=== PATIENT | male | born 1970 | race Caucasian/White ===

== ENCOUNTER 2025-05-14 10:15 | Emergency (ER) | payer SELFPAY ==
[2025-05-14] VITALS (33 sets, daily range): BP systolic 133–147; BP diastolic 89–99; PULSE 61–76; RESP 11–24; TEMP 36.6–37; O2SAT 93–100
--- NOTE | ~2025-05-14 | CT_ITS ---
EXAMINATION: CTA chest PE protocol DATE: 05/14/2025 12:11 INDICATION: Shortness of breath TECHNIQUE: Computed tomography (CT) pulmonary angiogram of the chest was performed with 100 mL Omnipaque-350 intravenous contrast. Additional 3D reconstructions utilizing coronal maximum intensity projection (MIP) were performed. Automated exposure control and iterative reconstruction technique were employed. The dose-length product was 637.23 mGy-cm. COMPARISON: None FINDINGS: No pulmonary embolism. Lungs are clear with no pneumonia, pulmonary edema or other pulmonary infiltrates. No pleural effusion or pneumothorax. Heart size is normal. Stenting along the left internal to descending coronary artery. Thoracic aorta is normal in caliber. No pathologically enlarged thoracic lymphadenopathy. Cholecystectomy clips the gallbladder fossa. Mild thoracic spondylosis. IMPRESSION: 1. No pulmonary embolism or other acute cardiopulmonary disease. Reviewed, dictated and finalized at location A.
--- NOTE | ~2025-05-14 | XR_ITS ---
Examination: XR chest 2V Clinical History: sob Comparison: None Technique: PA and Lateral Findings: Cardiomediastinal silhouette normal size and configuration. Lungs clear. No acute bony abnormality. IMPRESSION: 1. No acute cardiopulmonary findings. Reviewed, dictated and finalized at location R.
--- NOTE | 2025-05-14 10:17 | ECG_ITS ---
Test Date: 2025-05-14 10:19:20 Measurements Intervals [place] Rate: 73 P: 43 WI: 117 QRS: 12 QRSD: 106 T: 34 QT: 408 QTc: 450 Interpretive Statements SINUS RHYTHM WITH SHORT WI INTERVAL LOW QRS VOLTAGE IN PRECORDIAL LEADS [QRS DEFLECTION < 1.0 mV IN CHEST LEADS] INCOMPLETE RIGHT BUNDLE BRANCH BLOCK [90+ ms QRS DURATION, TERMINAL R IN V1/V2, 40+ ms S IN I/aVL/V4/V5/V6] BORDERLINE ECG No previous ECG available for comparison Electronically Signed On 05-15-2025 16:34:50 CDT by Lior Hernandez M.D.
--- NOTE | 2025-05-14 10:23 | ED.SOB ---
HPI - SOB/Dyspnea General Chief Complaint: Shortness of Breath/Dyspnea Stated Complaint: SOB, Chest pain Time Seen by Provider: 05/14/25 10:17 Source: patient Mode of arrival: ambulatory Limitations: no limitations History of Present Illness HPI Narrative: Patient is a 54-year-old male with coronary disease and stent placed a few years ago here with minimal chest pain and significant shortness of breath. This started acutely today. MD elicited complaint: shortness of breath Pertinent past history: other (Coronary artery disease with 1 stent) Onset (ago): day(s) (1) Context: other (Acute onset of shortness of breath a few hours ago and occasional chest pain) Timing: constant Severity: moderate Exacerbating factors: nothing Relieving factors: nothing Known history of: other (Coronary artery disease with 1 stent) Associated symptoms: chest pain Treatment prior to arrival: aspirin (Routine medicine) Related Data Home oxygen amount: none Allergies Allergy/AdvReac Type Severity Reaction Status Date / Time No Known Allergies Allergy Verified 05/14/25 10:21 Review of Systems Review of Systems: All systems reviewed & are unremarkable except as noted in HPI and below Constitutional: Constitutional: Reports no additional constitutional complaints Eyes: Eyes: Reports no additional eye complaints ENT: Reports system reviewed and no additional complaints, except as documented Cardiovascular: Cardiovascular: Reports no additional cardiovascular complaints Respiratory: Respiratory: Reports no additional respiratory complaints Gastrointestinal: Gastrointestinal: Reports no additional gastrointestinal complaints Genitourinary: Genitourinary: Reports no additional male genitourinary complaints Musculoskeletal: Musculoskeletal: Reports no additional musculoskeletal complaints Integumentary/Breasts: Skin/Breast: Reports system reviewed and no additional complaints, except as docu Neurologic: Reports system reviewed and no additional complaints, except as documented Psychiatric: Psychiatric: Reports no additional psychiatric complaints Endocrine: Endocrine: Reports no additional endocrine complaints Hematologic/Lymphatic: Hematologic/Lymphatic: Reports no additional hematologic/lymphatic complaints Allergic/Immunologic: Allergic/Immunologic: Reports no additional allergic/immunologic complaints Exam Const: General: healthy appearing Nutritional Appearance: well nourished Orientation/consciousness: patient oriented x3 Limitations: no limitations HENMT: Head: normal to inspection Ears: external ears normal Face/Nose/Sinus: Normal external nose present Eyes: Conjunctivae: conjunctivae normal Pupils: Equal, round and reactive pupils present EOM: EOMs intact bilaterally Neck: Neck: normal visual inspection Chest: Chest palpation & inspection: normal inspection of the chest Resp: Effort & Inspection: normal respiratory effort and not labored Auscultation: clear to auscultation bilaterally and no crackles Cardio: Rate: regular rate Rhythm: regular rhythm Heart sounds: no murmurs GI: Inspection: non-distended GI Palp: Yes Soft to palpation, No Tenderness to palpation present (GI) and No Guarding due to palpation present (GI) Auscultation: normal bowel sounds : General: Yes bladder normal to palpation Back/Spine/Pelvis: Back: no CVA tenderness Skin: General skin exam: normal color Rashes: no rashes Wounds: no wounds Neuro: General: patient oriented x3, moves all extremities and no meningeal signs Extrem: General: normal to inspection, no clubbing, cyanosis or edema and no pedal edema Psych: Mental Status: mental status grossly normal Affect: normal affect Attitude: cooperative Course Vital Signs Vital signs: Vital Signs Pulse Oximetry 98 05/14/25 10:15 Oxygen Delivery Room Air 05/14/25 10:15 Temperature 37.0 C 05/14/25 10:17 Pulse Rate 65 05/14/25 11:32 Respiratory Rate 20 05/14/25 11:32 Blood Pressure 133/89 05/14/25 11:32 Pulse Oximetry 99 05/14/25 11:39 Oxygen Delivery Room Air 05/14/25 11:39 MDM - SOB/Dyspnea MDM Narrative Medical decision making narrative: Patient is a 54-year-old male with minimal chest pain and some significant shortness of breath over the past few hours. He has CAD with 1 stent. X-ray. Labs. COVID test. Lab Data Attestation: I reviewed the patient's lab results. 05/14/25 10:44 05/14/25 10:44 Labs: Lab Results 05/14/25 05/14/25 05/14/25 Range/Units 10:44 10:45 12:54 WBC 5.4 (4.8-10.8) K/mm3 RBC 5.76 (4.70-6.10) M/mm3 Hgb 17.1 (14.0-18.0) g/dL Hct 49.9 (40.0-54.0) % MCV 86.6 (78.0-102.0) fL MCH 29.7 (27.0-31.0) pg MCHC 34.3 (32-36) g/dL RDW 12.3 (11.6-14.4) % Plt Count 262 (150-420) K/mm3 MPV 11.4 H (8.7-11.0) fl Immature Gran % (Auto) 0.6 H (0.0-0.0) % Neut % (Auto) 48.9 L (50.0-70.0) % Lymph % (Auto) 31.4 (18.0-42.0) % [place] % (Auto) 14.4 H (2.0-11.0) % Eos % (Auto) 3.6 (1.0-6.0) % Baso % (Auto) 1.1 H (0.0-1.0) % Lymph # (Auto) 1.68 (1.10-4.50) K/mm3 [place] # (Auto) 0.77 (0.10-0.90) K/mm3 Eos # (Auto) 0.19 (0.02-0.50) K/mm3 Baso # (Auto) 0.06 (0.00-0.10) K/mm3 Abs Immat Gran (auto) 0.03 H (0.00-0.00) K/mm3 Absolute Neuts (auto) 2.62 (1.70-7.20) K/mm3 Absolute Nucleated RBC 0.00 (0.00-0.00) K/mm3 Nucleated RBC % 0.0 (0-0.0) % PT 10.6 (9.50-12.1) Seconds INR 1.0 APTT 26.7 (23.9-30.70) Sec D-Dimer 0.19 (0.19-0.50) mg/L Sodium 139 (137-145) mmol/L Potassium 4.4 (3.4-5.0) mmol/L Chloride 103 (98-107) mmol/L Carbon Dioxide 27 (22-30) mmol/L Anion Gap 9 (4-12) mmol/L BUN 11 (9-20) mg/dL Creatinine 1.19 (0.7-1.3) mg/dL Estim Creat Clear Calc 70 ml/min Estimated GFR > 60 (59 - ) Glucose 81 (65-110) mg/dL Calculated Osmolality 286 (285-295) mOsm/kg Calcium 9.5 (8.4-10.2) mg/dL Total Bilirubin 0.9 (0.2-1.3) mg/dL AST 34 (17-59) U/L ALT 33 (6-50) U/L Alkaline Phosphatase 56 (38-126) U/L Troponin I < 0.012 < 0.012 (0.000-0.034) ng/mL NT-Pro-B Natriuret Pep 24 (19.9-100) pg/mL Total Protein 9.4 H (6.3-8.2) g/dL Albumin 4.6 (3.5-5.1) g/dL Lipase 119 (23-300) U/L Influenza A (RT-PCR) Negative (Negative) Influenza B (RT-PCR) Negative (Negative) RSV (RT-PCR) Negative (Negative) SARS-CoV-2 RNA (RT-PCR) Negative (Negative) Imaging Data Attestation: I personally reviewed and interpreted this imaging study as follows: Radiologist's impression: Chest x-ray is negative for acute process CTA of the chest was negative for acute process ECG Data EKG #1: Attestation: I personally reviewed and interpreted this ECG as follows: ECG completion date: 05/14/25 ECG completion time: 10:36 EKG Interpretation: normal rate, sinus rhythm, no ectopy, non-specific ST changes, normal QRS, normal QT and NL axis Discharge Plan Discharge Clinical Impression: Dyspnea Qualifiers: Dyspnea type: unspecified Qualified Code(s): R06.00 - Dyspnea, unspecified Patient Disposition: Home Condition: Stable Instructions: Dyspnea (ED), Shortness of Breath (ED) Additional Instructions: Please follow-up with the primary doctor in the next week. You may need to see a manager of organizational development if continued shortness of breath without a cause at this point. Patient Language: Ukrainian Follow-up/Referrals: UNKNOWN,DOCTOR [Primary Care Provider] Time of Disposition: 13:43
[2025-05-14 10:53] LABS: Hematocrit 49.9 % (40.0-54.0); Hemoglobin 17.1 g/dL (14.0-18.0); Immature Granulocyte Percent A 0.6 % (0.0-0.0); Lymphocytes Absolute Auto 1.68 K/mm3 (1.10-4.50); Mean Corpuscular HGB Conc 34.3 g/dL (32-36); Mean Corpuscular Hemoglobin 29.7 pg (27.0-31.0); Mean Corpuscular Volume 86.6 fL (78.0-102.0); Nucleated Red Blood Cells Absolute Auto 0.00 K/mm3 (0.00-0.00); Nucleated Red Blood Cells Perc 0.0 % (0-0.0); Platelet Count Result 262 K/mm3 (150-420); Red Blood Count 5.76 M/mm3 (4.70-6.10); White Blood Count 5.4 K/mm3 (4.8-10.8)
[2025-05-14 11:03] LABS: Alanine Aminotransferase 33 U/L (6-50); Albumin Level 4.6 g/dL (3.5-5.1); Alkaline Phosphatase 56 U/L (38-126); Anion Gap 9 mmol/L (4-12); Aspartate Amino Transferase 34 U/L (17-59); Bilirubin,Total 0.9 mg/dL (0.2-1.3); Blood Urea Nitrogen 11 mg/dL (9-20); Calcium 9.5 mg/dL (8.4-10.2); Carbon Dioxide 27 mmol/L (22-30); Chloride 103 mmol/L (98-107); Estimated CRCL calculation 70 ml/min; Estimated Glomerular Filt Rate > 60; Glucose 81 mg/dL (65-110); Osmolality Calculated 286 mOsm/kg (285-295); Potassium 4.4 mmol/L (3.4-5.0); Sodium 139 mmol/L (137-145); Total Protein 9.4 g/dL (6.3-8.2)
[2025-05-14 11:07] LABS: INR 1.0; Partial Thromboplastin Time 26.7 Sec (23.9-30.70); Prothrombin Time 10.6 Seconds (9.50-12.1)
[2025-05-14 11:10] LABS: Lipase 119 U/L (23-300)
--- OUTSIDE RECORDS SUMMARY | 2025-05-14 11:11 | XMS_ITS | Encounter Summary ---
Author Organization [facility] Address [address] [place] [id number] Care Team Providers Care Fire Lieutenant Marine Name Role Phone Casper Son PA-C Primary Care Provider [phone] Gabriella Guzmán MD Unavailable Unavailabl e Julieth Preciado MD Unavailable Reason for Visit * Reason Onset Date Comments Hospital Follow Up 12/07/2020 Encounter Details Date Type Department Care Team (Late st Contact Info) Description 12/07/2020 Hospital Follow-up Call [facility] [address] [place] [address] Carol Ann Mata, RN Hospital Follow Up Social History Tobacco Use Types Packs/Day Years Used Date Smoking Tobacco: Never Smokeless Tobacco: Current Chew Alcohol Use Standard Drinks/Week Comments No 0 (1 standard drink = 0.6 oz pur e alcohol) Humiliation, Afraid, Rape, and Kick questionnair e Answer Date Recorded Within the last year, have y ou been afraid of your partner or ex-partner? No 12/02/2020 Within the last year, have y ou been humiliated or emotionally abused in other ways by your partner or ex-partner? No Within the last year, have y ou been kicked, hit, slapped, or otherwise physically hurt by your partner or ex-partner? No 12/02/2020 Within the last year, have y ou been raped or forced to have any kind of sexual activity by your partner or ex-partner? No 12/02/2020 Social Connection and Isolat ion Panel [NHANES] Answer Date Recorded In a typical week, how many times do you talk on the phone with family, friends, or neighbors? More than three times a week 12/02/2020 How often do you get togethe r with friends or relatives? More than three times a week 12/02/2020 How often do you attend chur ch or gnosticist services? Never 12/02/2020 Do you belong to any clubs o r organizations such as zoroastrianism groups, unions, fraternal or athletic groups, or school groups? No 12/02/2020 How often do you attend meet ings of the clubs or organizations you belong to? Never 12/02/2020 Are you , , di vorced, , never , or living with a partner? 12/02/2020 AUDIT-C Answer Date Recorded Frequency of Alcohol Consumption Never 05/09/2019 Average Number of Drinks Not on file 019 Frequency of Binge Drinking Not on file 04/21 Overall Financial Resource Strain (CARDIA) Answe r Date Recorded How hard is it for you to pa y for the very basics like food, housing, medical care, and heating? Not hard at all 12/02/2020 [facility] Occupat ional Health - Occupational Stress Questionnaire Answer Date Recorded Do you feel stress - tense, restless, nervous, or anxious, or unable to sleep at night because your mind is troubled all the time - these days? Not at all 12/02/2020 Exercise Vital Sign Answer Date Recorde d On average, how many days pe r week do you engage in moderate to strenuous exercise (like a brisk walk)? 2 days 12/02/2020 On average, how many minutes do you engage in exercise at this level? 20 min 12/02/2020 Hunger Vital Sign Answer Date Recorded Within the past 12 months, y ou worried that your food would run out before you got the money to buy more. Never true 12/03/19 21 Within the past 12 months, t he food you bought just didn't last and you didn't have money to get more. Never true 12/02/2020 PRAPARE - Transportation Answer Date Re corded In the past 12 months, has l ack of transportation kept you from medical appointments or from getting medications? No 11/19 In the past 12 months, has l ack of transportation kept you from meetings, work, or from getting things needed for daily living? No 12/02/2020 Sex and Gender Information Value Date Recorded Sex Assigned at Male 12/02/2020 4:10 AM CDT Legal Sex Male 3:27 AM CDT Gender Identity Male 12/02/2020 4:10 AM CDT Sexual Orientation Straight 12/02/2020 4: 10 AM CDT COVID-19 Exposure Response Date Recorded In the last month, have you been in contact with someone who was confirmed or suspected to have Coronavirus / COVID-19? No / Unsure 12/02/2020 4:05 AM CDT documented as of this encounter Functional Status * RETIRED Are you deaf or do you have serious difficulty hearing Answer Date of Assessment Author Status No 12/02/2020 4:17 AM CDT Activ e * RETIRED Are you blind or do you have serious difficulty seeing, even when wearing glasses? Answer Date of Assessment Author Status No 12/02/2020 4:17 AM CDT Activ e * Do you have serious difficulty walking or climbing stairs? Answer Date of Assessment Author Status No 12/02/2020 4:19 AM CDT Fozia Christian RN Active * Do you have difficulty dressing or bathing? Answer Date of Assessment Author Status No 12/02/2020 4:17 AM CDT Fozia Christian RN Active * Because of a physical, mental, or emotional condition, do you have difficulty doing errands alone such as visiting a doctor's office or shopping? Answer Date of Assessment Author Status No 12/02/2020 4:17 AM CDT Fozia Christian RN Active documented as of this encounter Mental Status * Because of a physical, mental, or emotional condition, do you have serious difficulty concentrating, remembering, or making decisions? Answer Entry Date Author Status No 12/02/2020 4:17 AM CDT Fozia Christian RN Active documented in this encounter Plan of Treatment Not on file documented as of this encounter Visit Diagnoses Not on filedocumented in this encounter Care Teams Fire Lieutenant Marine Relationship Specialty Start Date End Date Casper Son PA-C PCP - General PHYSICIAN GRINDER MILL OPERATOR 04/11/19 Gabriella Guzmán MD Consulting Physician CARDIOVASCULAR DISEASE 12/07/20 Julieth Preciado MD [address] [place] [address] Consulting Physician CARDIOVASCULAR DISEASE 02/25/24 documented as of this encounter
--- OUTSIDE RECORDS SUMMARY | 2025-05-14 11:11 | XMS_ITS | Clinical Summary ---
Author Organization [facility] Address [address] [place] [address] Care Team Providers Care Test Desk Supervisor Name Role Phone Csaper Son PA-C Primary Care Provider [phone] Julieth Preciado MD Unavailable Allergies Active Allergy Reactions Criticality Noted Date Comments Pravastatin Unknown 03/03/2022 Medications lisinopril 10 MG tablet Take 10 mg by mouth daily. Active ASPIRIN 81 OR Take 1 tablet by mouth daily. 3 Active topiramate 50 MG Tab Take 50 mg by mouth daily. Active loratadine (CLARITIN) 10 MG tablet Take 1 tablet by mouth daily. Active butalbital-acetam inophen-caffeine 50-325-40 MG tablet Take 1-2 tablets by mouth every 8 (eight) hours as needed. 6 Active ALPRAZolam 0.5 MG tablet Take 1-2 tablets by mouth 3 (three) times daily as needed. 1 Active pantoprazole 40 MG packet Take 40 mg by mouth daily. Active FLUoxetine 20 MG capsule Take 20 mg by mouth daily. 1 Active meclizine (ANTIVERT) 25 MG tablet 1-2 tablets three times a day as needed for dizziness 20 tablet 3 Active ticagrelor (BRILINTA) 60 MG tabletIndications :Chest pain, unspecified type,Status post insertion of drug-eluting stent into left anterior descending (LAD) artery,On statin therapy,Essential hypertension Take 1 tablet by mouth twice daily 60 tablet 1 4 Active rosuvastatin (CRESTOR) 5 mg 5 mg (10 mg split tab) Take 1 split tab (5 mg total) by mouth nightly at bedtime. 90 tablet 1 4 Active naproxen (NAPROSYN) 500 MG tablet Take 1 tablet (500 mg total) by mouth 2 (two) times daily with meals. 60 tablet 5 Active Active Problems Problem Noted Date Diagnosed Date Hyperlipidemia with target LDL less than 70 12/20 Status post insertion of nasra g-eluting stent into left anterior descending (LAD) artery 03/31/2022 Coronary artery disease invo lving pilot station coronary artery of pilot station heart without angina pectoris 03/31/2022 Polycythemia 01/04/2021 Essential hypertension 01/04/2021 Right bundle branch block 01/04/2021 Orchalgia 05/09/2019 Spermatocele 05/09/2019 Resolved Problems Problem Noted Date Diagnosed Date Resolved Date Chest pain 12/02/2020 04/04/2022 Epididymitis 05/09/2019 04/04/2022 Encounters Date Type Department Care Team Description 03/27/2025 4:27 PM CDT - 03/27/2025 5:38 PM CDT Emergency [facility] [address] [address] Charanjit Mesa MD Knee Pain (/) Discharge Disposition: Home or Self Care (Routine Discharge) 03/27/2025 Travel from Last 3 Months Family History Medical History Relation Comments Heart Disease Father Hypertension Father Heart Disease Mother Hypertension Mother Relation Status Comments Father Mother Alive Social History Tobacco Use Types Packs/Day Years Used Date Smoking Tobacco: Never Smokeless Tobacco: Current Chew Tobacco Cessation:Ready to Q uit: No; Counseling Given: Yes Alcohol Use Standard Drinks/Week Comments No 0 [...] often do you attend chur ch or orthodoxy services? Never 12/02/2020 Do you belong to any clubs o r organizations such as adventism groups, unions, fraternal or athletic groups, or [...] and heating? Not hard at all 12/02/2020 [facility] Occupat ional Health - Occupational Stress [...] Orientation Straight 12/02/2020 4: 10 AM CDT Last Filed Vital Signs Vital Sign Reading Time Taken Comments Blood Pressure 137/88 03/27/2025 5:00 PM CDT Pulse 82 03/27/2025 4:33 PM CDT Temperature 36.5 C (97.7 F) 03/27/2025 4:33 PM CDT Respiratory Rate 18 03/27/2025 4:33 PM CDT Oxygen Saturation 99% 03/27/2025 5:00 PM CDT Inhaled Oxygen Concentration - - Weight 99.8 kg (220 lb) 03/27/2025 4:33 PM CDT Height 182.9 cm (6') 03/27/2025 4:33 PM CDT Body Mass Index 29.84 03/27/2025 4:33 PM CDT Plan of Treatment Health Maintenance Due Date Last Done Comments Colorectal Cancer Screening Colonoscopy (10 Years) 1971 Annual Physical 10/23/1974 Hepatitis C 10/23/1989 Hepatitis B Vaccines (1 of 3 - 19+ 3-dose series) 10/23/1990 Pneumococcal Vaccine: 50+ Years (1 of 2 - PCV) 10/23/1990 Zoster Vaccines (1 of 2) 10/23/2021 ASCVD LDL 01/07/2025 01/08/2024, 02/19, 12/29/2022, Additional history exists COVID-19 Vaccine (3 - 2024- season) 2025 06/02/2021, 05/06/2021 DTaP, Tdap and Td Vaccines (2 - Td or Tdap) 01/10/2031 01/10/2021 Meningococcal B Vaccine Aged Out No l onger eligible based on patient's age to complete this topic Meningococcal Vaccine Aged Out No huong sameer eligible based on patient's age to complete this topic RSV Immunizations Under 20 Months Aged Out No longer eligible based on patient's age to complete this topic Medical Devices Implanted Type Area Classroom Technology Technician Device Identifier Shelf Expiration Date Model / Serial / Lot Cv Orsiro [employer] Elliot Prox Lad Stent- 2 Implanted:Qty: 1 on 03/07/2022 by Augusto Dickson MD Stent Coronary LAD [employer] 09/22/2023 [id number] / / [id number] Procedures Procedure Name Priority Date/Time Associated Diagnosis Comments XR KNEE STAND AP DEEPAK ONLY STAT 03/27/2025 5:14 PM CDT LIPID PANEL Routine 01/08/2024 10:47 AM CDT Chest pain, unspecified type from Last 3 Months or Most Recently Relevant to Health Maintenance Results * XR KNEE STAND AP DEEPAK ONLY (03/27/2025 5:14 PM CDT) Anatomical Region Laterality Modality Knee Radiographic Ilda ging 03/27/2025 5:24 PM CDT Impressions 03/27/2025 5:25 PM CDT IMPRESSION: Unremarkable single view of the knees. Referred By: Interpreted By: Rene Walker MD, 03/27/2025 5:24 PM Narrative 03/27/2025 5:25 PM CDT [place] [id number] [facility] [place] [address] EXAMINATION: XR KNEE STAND AP DEEPAK ONLY HISTORY: Pain DATE: 03/27/2025 4:58 PM COMPARISON: None TECHNIQUE: Single AP standing view of the knees. FINDINGS: No acute fracture identified, within limitation of single projection examination. No dislocation. Medial and lateral joint spaces appear within normal limits. Patellofemoral joint spaces cannot be assessed on this single projection exam. Joint effusion cannot be assessed on this single projection exam. No destructive bone lesion. Procedure Note Rene Walker MD - 03/27/[address] [place] [address] EXAMINATION: XR KNEE STAND AP DEEPAK ONLY HISTORY: Pain DATE: 03/27/2025 4:58 PM COMPARISON: None TECHNIQUE: Single AP standing view of the knees. FINDINGS: No acute fracture identified, within limitation of singleprojection examination. No dislocation. Medial and lateral joint spacesappear within normal limits. Patellofemoral joint spaces cannot beassessed on this single projection exam. Joint effusion cannot beassessed on this single projection exam. No destructive bone lesion. IMPRESSION: Unremarkable single view of the knees. Referred By: Interpreted By: Rene Walker MD, 03/27/2025 5:24 PM Charanjit Mesa MD GENERAL IMAGING Final Result * (ABNORMAL) LIPID PANEL (01/08/2024 10:47 AM CDT) CHOLESTEROL 252 MG/DL 01/08/2024 12:[address] [facility] Comment:HIGH: > OR = 240 TRIGLYCERIDES 290 MG/DL 01/08/2024 12:[address] [facility] Comment:200-499 HIGH HDL 34(L) >39 MG/DL 01/08/2024 12:[address] [facility] LDL (CALCULATED) 160 MG/DL 01/08/20 12:[address] [facility] Comment:160-189 HIGH VLDL CALCULATION 58 MG/DL 01/08/20 12:[address] [facility] Comment:REFERENCE RANGE NOT ESTABLISHED CHOL/HDL RATIO 7.4 01/08/2024 12:[address] [facility] Comment:REFERENCE RANGE NOT ESTABLISHED LDL/HDL 4.7 01/08/2024 12:[address] [facility] Comment:REFERENCE RANGE NOT ESTABLISHED NON HDL CHOLESTEROL 218 MG/DL 01/08/2024 12:[address] [facility] Comment:REFERENCE RANGE NOT ESTABLISHED 01/08/2024 10:4 7 AM CDT Gabriella Guzmán MD LABORATORY Final Resul t [facility] [address] [place] [address], [id number] from Last 3 Months or Most Recently Relevant to Health Maintenance Advance Directives * Full Code (Latest Code Status on File) Date Activated Date Inactivated Comments 03/07/2022 11:49 AM 03/07/2022 4:50 PM * Full Code Date Activated Date Inactivated Comments 12/02/2020 4:37 AM 12/03/2020 4:25 PM Care Teams Test Desk Supervisor Relationship Specialty Start Date End Date Casper Son PA-C PCP - General PHYSICIAN E MERCHANT 04/11/19 Julieth Preciado MD [address] [place] [address] Consulting Physician CARDIOVASCULAR DISEASE 02/25/24
--- OUTSIDE RECORDS SUMMARY | 2025-05-14 11:11 | XMS_ITS | Encounter Summary ---
Author Organization [facility] Address [address] [place] [address] Care Team Providers Care Hr Advisor Name Role Phone Casper Son PA-C Primary Care Provider [phone] Gabriella Guzmán MD Unavailable Unavailabl e Julieth Preciado MD Unavailable Encounter Details Date Type Department Care Team ([facility] st Contact Info) Description 01/02/2023 [facility] [address] [place] [phone] Gabriella Guzmán MD Social History Tobacco Use Types Packs/Day Years [...] often do you attend chur ch or mosque services? Never 12/02/2020 Do you belong to any clubs o r organizations such as buddhist groups, unions, fraternal or athletic groups, or [...] and heating? Not hard at all 12/02/2020 [facility] - [...] Orientation Straight 12/02/2020 4: 10 AM CDT documented as of this encounter Functional Status * RETIRED Are you deaf or do you have serious difficulty hearing Answer Date of Assessment Author Status No 03/11/2022 6:40 PM CDT Activ e * RETIRED Are you blind or do you have serious difficulty seeing, even when wearing glasses? Answer Date of Assessment Author Status No 03/11/2022 6:40 PM CDT Activ e * Do you have serious difficulty walking or climbing stairs? Answer Date of Assessment Author Status No 03/11/2022 6:40 PM CDT Loyda Luna R N Active * Do you have difficulty dressing or bathing? Answer Date of Assessment Author Status No 03/11/2022 6:40 PM CDT Loyda Luna R N Active * Because of a physical, mental, or emotional condition, do you have difficulty doing errands alone such as visiting a doctor's office or shopping? Answer Date of Assessment Author Status No 03/11/2022 6:40 PM CDT Loyda Luna R N Active documented as of this encounter Mental Status * Because of a physical, mental, or emotional condition, do you have serious difficulty concentrating, remembering, or making decisions? Answer Entry Date Author Status No 03/11/2022 6:40 PM CDT Loyda Luna R N Active documented in this encounter Plan of Treatment Not on file documented as of this encounter Procedures Procedure Name Priority Date/Time Associated Diagnosis Comments LIPID PANEL Routine 12/29/2022 HEPATIC FUNCTION PANEL Routine 12/29/2022 documented in this encounter Results * LIPID PANEL (12/29/2022) CHOLESTEROL 117 140 - 200 HDL 39 35 - 100 TRIGLYCERIDES 154 0 - 150 LDL (CALCULATED) 47 0 - 100 12/29/2022 Gabriella Guzmán MD LABORATORY Final Resul t * HEPATIC FUNCTION PANEL (12/29/2022) ALBUMIN S/P/B 3.8 3.5 - 5.0 ALKALINE PHOSPHATASE S/P/B 68 46 - 116 ALT 37 12 - 78 AST 25 10 - 41 BILIRUBIN DIRECT S/P/B 0.2 0.0 - 0.4 BILIRUBIN TOTAL S/P/B 0.6 0.2 - 12 TOTAL PROTEIN S/P/B 7.46. 6.0 - 8.5 12/29/2022 Gabriella Guzmán MD LABORATORY Final Resul t documented in this encounter Visit Diagnoses Not on filedocumented in this encounter Care Teams Hr Advisor Relationship Specialty Start Date End Date Casper Son PA-C PCP - General PHYSICIAN TOBACCO SORTER 04/11/19 Gabriella Guzmán MD Consulting Physician CARDIOVASCULAR DISEASE 12/07/20 Julieth Preciado MD [address] [place] [address] Consulting Physician CARDIOVASCULAR DISEASE 02/25/24 documented as of this encounter
--- OUTSIDE RECORDS SUMMARY | 2025-05-14 11:11 | XMS_ITS | Patient Health Record ---
Author Organization [facility] Address [address] [address] Care Team Providers Care Mining Helper Name Role Phone piper aranda Primary Care Provider Jena Philiparathi Unavailable [phone] Reason For Referral No Information Medications Medication SIG (Take, Route, Frequency, Duration) Notes Start Date End Date Status FLUoxetine HCl 20 MG 1 cap(s) orally onc e a day Active Aspirin Adult Low Dose 81 MG 1 tab(s) orally once a day Active Lisinopril 10 MG 1 tab(s) orally once a day Active Fenofibrate 160 MG 1 tab(s) orally once a day Active Problems Problem Type SNOMED Code ICD Code Onset Dates Problem Status W/U Status Risk Notes Problem Thyroid function tests abnormal (108666228) Abnormal thyroid blood test (R94.6) Active confirmed Plan Of Treatment No Information Medical (General) History Medical History History ICD Code HTN HYperlipidemia Polycythemia Overactive Nerves Surgical History Surgery Date(Month/Year) Vasectomy Hospitalization History Reason Date(Month/Year)
--- OUTSIDE RECORDS SUMMARY | 2025-05-14 11:11 | XMS_ITS | Clinical Summary ---
Author Organization [facility] Address [address] [place] [address] Phone Care Team Providers Care Battery Vent Plug Inserter Name Role Phone Casper Son Primary Care Provider [phone] Too Caceres MD Unavailable Allergies Active Allergy Reactions Criticality Noted Date Comments Pravastatin Unknown 03/03/2022 Medications aspirin 81 MG Chewable Tablet Acti ve fenofibrate (TRIGLIDE, LOFIBRA) 160 MG Tablet Take 160 mg by mouth daily. Active FLUoxetine (PROzac) 20 MG Capsule Take 20 mg by mouth daily. Active lamoTRIgine (LaMICtal) 25 MG Tablet Take 25 mg by mouth daily. 1-2 tabs p.o. Daily. Active Topiramate 50 MG Tablet Take 50 mg by mouth every evening. Active other Please do a therapeutic phlebotomy of 1 unit. Dx: Polycythemia vera After the phlebotomy please give 250 cc NS IV. 1 Act 1 Active ALPRAZolam (XANAX) 0.5 MG Tablet Take 1 to 2 tabs PO 3 times a day as needed for anxiety 60 Tablet 3 1 Active amLODIPine (NORVASC) 5 MG Tablet Take 5 mg by mouth daily. 2 Active hydrOXYzine (ATARAX) 25 MG Tablet 2 Active pantoprazole (PROTONIX) 40 MG Tablet Delayed Response Take 40 mg by mouth daily. 10/30/202 2 Active famotidine (PEPCID) 20 MG Tablet Take 1 tablet by mouth twice daily 60 Tablet 3 2 Active rosuvastatin (CRESTOR) 20 MG Tablet TAKE 1 TABLET BY MOUTH NIGHTLY AT BEDTIME 3 Active ondansetron (ZOFRAN-ODT) 8 MG TABLET DISPERSIBLE 2 Active Brilinta 60 MG Tablet Take 60 mg by mouth 2 times daily. 3 Active meclizine (ANTIVERT) 25 MG Tablet TAKE 1/2 TO 1 (ONE-HALF TO ONE) TABLET BY MOUTH THREE TIMES DAILY NEEDED 3 Active lisinopril (PRINIVIL, ZESTRIL) 20 MG Tablet 3 Active isosorbide dinitrate (ISORDIL) 10 MG Tablet Take 10 mg by mouth 2 times daily. 3 Active ketorolac (TORADOL) 10 MG Tablet TAKE 1 TABLET BY MOUTH EVERY 8 HOURS NEEDED 3 Active butalbital-acet aminophen-caffe ine (FIORICET, ESGIC) 50-325-40 MG Tablet TAKE 1 TO 2 TABLETS BY MOUTH TWICE DAILY NEEDED MUST LAST 30 DAYS 3 Active doxycycline hyclate (VIBRA-TABS) 100 MG Tablet 3 Active Active Problems Problem Noted Date Diagnosed Date Palpitations 06/11/2020 Non-recurrent bilateral ingu inal hernia without obstruction or gangrene 12/06/2018 Dehydration 06/07/2018 Frequent headaches 06/07/2018 Polycythemia vera 06/07/2018 Polycythemia vera(238.4) 12/08/2016 Vitamin D deficiency 12/03/2015 Erythrocytosis Immunizations Immunization Administration Dates Next Due TDAP Vaccine 01/10/2021 Family History Medical History Relation Name Comments Hypertension Brother 2 High Cholesterol Brother 3 Hypertension Father High Cholesterol Mother Hypertension Mother Relation Name Status Comments Brother 1 Alive Brother 2 Brother 3 Father Mother Alive Social History Tobacco Use Types Packs/Day Years Used Date Smoking Tobacco: Never Smokeless Tobacco: Current Chew Tobacco Cessation:Ready to Q uit: Not Asked; Counseling Given: Not Answered Alcohol Use Standard Drinks/Week Comments No 0 (1 standard drink = 0.6 oz pur e alcohol) PHQ-2 Answer Date Recorded Total Score - Questions 1-9 0 03/21 Sex and Gender Information Value Date Recorded Sex Assigned at Not on file Legal Sex Male 1:16 PM CDT Gender Identity Not on file Sexual Orientation Not on file Last Filed Vital Signs Vital Sign Reading Time Taken Comments Blood Pressure 120/82 10/12/2023 11:11 AM FIBERGLASS CONTAINER WINDING OPERATOR Pulse 71 10/12/2023 11:11 AM FIBERGLASS CONTAINER WINDING OPERATOR Temperature 36.7 C (98.1 F) 10/12/2023 11:11 AM FIBERGLASS CONTAINER WINDING OPERATOR Respiratory Rate 16 10/12/2023 11:11 AM FIBERGLASS CONTAINER WINDING OPERATOR Oxygen Saturation 97% 10/12/2023 11:11 AM FIBERGLASS CONTAINER WINDING OPERATOR Inhaled Oxygen Concentration - - Weight 91 kg (200 lb 11.2 oz) 10/12/2023 11:11 A M FIBERGLASS CONTAINER WINDING OPERATOR Height 182.9 cm (6') 10/12/2023 11:11 AM FIBERGLASS CONTAINER WINDING OPERATOR Body Mass Index 27.22 10/12/2023 11:11 AM FIBERGLASS CONTAINER WINDING OPERATOR Plan of Treatment Health Maintenance Due Date Last Done Comments Hepatitis C Virus (HCV) Screening 1970 Hepatitis B Immunization (1 of 3 - 19+ 3-dose series) 10/23/1990 Pneumococcal Immunization (5 0+ years) (1 of 2 - PCV) 10/23/1990 Zoster Immunization (1 of 2) 10/23/1990 Cologuard 10/23/2016 Colonoscopy 10/23/2016 Colorectal Cancer Screening 10/23/2016 Immunochemical Fecal Occult Blood 10/23/2016 SARS-COV-2 Immunization (3 - Moderna risk series) 06/30/2021 06/02/2021, 05/06/2021 Influenza Immunization (#1) 2025 Td Immunization Every 10 Yea rs (Adults With 1 Tdap) 01/10/2031 01/10/2021 Respiratory Syncytial Virus (RSV) Immunization (Adult) (1 - 1-dose 75+ series) 10/23/2046 DTaP/Tdap/Td Immunization Discontinued 01/10/2021 Human Papillomavirus (HPV) Immunization Aged Out No longer eligible based on patient's age to complete this topic Meningococcal Immunization (ACWY) Aged Out No longer eligible based on patient's age to complete this topic Rotavirus Immunization Aged Out No lo nger eligible based on patient's age to complete this topic Care Teams Battery Vent Plug Inserter Relationship Specialty Start Date End Date Casper Son PA [address] [place] [address] PCP - General Physician Milk Route Supervisor 12/14/20 Too Caceres MD [address] [place] [address] [address] [place] [address] Consulting Physician Oncology 05/24/23
[2025-05-14 11:12] LABS: NT Pro B Type Natriuretic Pept 24 pg/mL (19.9-100)
[2025-05-14 11:23] LABS: Troponin I < 0.012 ng/mL (0.000-0.034)
[2025-05-14 11:25] LABS: Influenza A QL RT-PCR Negative (Negative); Influenza B QL RT-PCR Negative (Negative); RSV RNA, RT-PCR Negative (Negative); SARS-CoV-2 RNA PCR Negative (Negative)
--- OUTSIDE RECORDS SUMMARY | 2025-05-14 11:39 | XMS_ITS | Encounter Summary ---
Author Organization [facility] Address [address] [place] [address] Care Team Providers Care Precision Instrument And Tool Maker Name Role Phone Casper Son PA-C Primary Care Provider [phone] Gabriella Guzmán MD Unavailable Unavailabl e Julieth Preciado MD Unavailable Encounter Details Date Type Department Care Team ([facility] st Contact Info) Description 01/02/2023 Abstract [facility] [address] [place] [phone] Gabriella Guzmán MD Social History Tobacco Use [...] often do you attend chur ch or yarsani services? Never 12/02/2020 Do you belong to any clubs o r organizations such as christian groups, unions, fraternal or athletic groups, or [...] and heating? Not hard at all 12/02/2020 [facility] Occupat ional Health - Occupational Stress [...] on filedocumented in this encounter Care Teams Precision Instrument And Tool Maker Relationship Specialty Start Date End Date Casper Son PA-C PCP - General PHYSICIAN NUMERICAL CONTROL ROUTER OPERATOR 04/11/19 Gabriella Guzmán MD Consulting Physician CARDIOVASCULAR DISEASE 12/07/20 Julieth Preciado MD [address] [place] [address] Consulting Physician CARDIOVASCULAR DISEASE 02/25/24 documented as of this encounter
--- OUTSIDE RECORDS SUMMARY | 2025-05-14 11:39 | XMS_ITS | Clinical Summary ---
Author Organization [facility] Address [address] [place] [address] Phone Care Team Providers Care Naphthol Soaping Machine Operator Name Role Phone Casper Son Primary Care Provider [phone] Too Caceres MD Unavailable Allergies Active Allergy [...] Comments Blood Pressure 120/82 10/12/2023 11:11 AM AUTOMOTIVE WARRANTY ADMINISTRATOR Pulse 71 10/12/2023 11:11 AM AUTOMOTIVE WARRANTY ADMINISTRATOR Temperature 36.7 C (98.1 F) 10/12/2023 11:11 AM AUTOMOTIVE WARRANTY ADMINISTRATOR Respiratory Rate 16 10/12/2023 11:11 AM AUTOMOTIVE WARRANTY ADMINISTRATOR Oxygen Saturation 97% 10/12/2023 11:11 AM AUTOMOTIVE WARRANTY ADMINISTRATOR Inhaled Oxygen Concentration - - Weight 91 kg (200 lb 11.2 oz) 10/12/2023 11:11 A M AUTOMOTIVE WARRANTY ADMINISTRATOR Height 182.9 cm (6') 10/12/2023 11:11 AM AUTOMOTIVE WARRANTY ADMINISTRATOR Body Mass Index 27.22 10/12/2023 11:11 AM AUTOMOTIVE WARRANTY ADMINISTRATOR Plan of Treatment Health Maintenance Due Date [...] age to complete this topic Care Teams Naphthol Soaping Machine Operator Relationship Specialty Start Date End Date Casper Son PA [address] [address] PCP - General Physician Skin Care Therapist 12/14/20 Too Caceres MD [address] [place] [address] [address] [place] [id number] Consulting Physician Oncology 05/24/23
--- OUTSIDE RECORDS SUMMARY | 2025-05-14 11:39 | XMS_ITS | Clinical Summary ---
Author Organization [facility] Address [address] [place] [address] Care Team Providers Care Strategic Planning Manager Name Role Phone Casper Son PA-C Primary Care Provider [phone] Julieth Preciado MD Unavailable Allergies Active Allergy [...] artery 03/31/2022 Coronary artery disease invo lving [place] coronary artery of [place] heart without angina pectoris 03/31/2022 Polycythemia 01/04/2021 Essential hypertension 01/04/2021 Right bundle branch block 01/04/2021 Orchalgia 05/09/2019 Spermatocele 05/09/2019 Resolved Problems Problem Noted Date Diagnosed Date Resolved Date Chest pain 12/02/2020 04/04/2022 Epididymitis 05/09/2019 04/04/2022 Encounters Date Type Department Care Team Description 03/27/2025 4:27 PM CDT - 03/27/2025 5:38 PM CDT Emergency [facility] [address] [facility] [address] [place] [address] Charanjit Mesa MD Knee Pain (/) Discharge [...] often do you attend chur ch or roman catholic services? Never 12/02/2020 Do you belong to any clubs o r organizations such as baptist groups, unions, fraternal or athletic groups, or [...] and heating? Not hard at all 12/02/2020 [facility] Occupat ional Health - Occupational Stress [...] this topic Medical Devices Implanted Type Area Beverage Specialist Device Identifier Shelf Expiration Date Model / Serial / Lot Cv Orsiro Houstonia Elliot Prox Lad Stent- 2 Implanted:Qty: 1 on 03/07/2022 by Augusto Dickson MD Stent Coronary LAD [employer] 09/22/2023 [id number] / / [id number] Procedures Procedure Name Priority Date/Time Associated Diagnosis [...] 5:24 PM Narrative 03/27/2025 5:25 PM CDT [place] [id number] [facility] [place] [address] EXAMINATION: XR KNEE STAND AP DEEPAK ONLY [...] Procedure Note Rene Walker MD - 03/27/[address] [place] [address] EXAMINATION: XR KNEE STAND AP DEEPAK ONLY [...] CHOLESTEROL 252 MG/DL 01/08/2024 12:28 PM CDT [facility] Comment:HIGH: > OR = 240 TRIGLYCERIDES 290 MG/DL 01/08/2024 12:28 PM CDT [facility] Comment:200-499 HIGH HDL 34(L) >39 MG/DL 01/08/2024 12:28 PM CDT [facility] LDL (CALCULATED) 160 MG/DL 01/08/20 12:28 PM CDT [facility] Comment:160-189 HIGH VLDL CALCULATION 58 MG/DL 01/08/20 12:28 PM CDT [facility] Comment:REFERENCE RANGE NOT ESTABLISHED CHOL/HDL RATIO 7.4 01/08/2024 12:28 PM CDT [facility] Comment:REFERENCE RANGE NOT ESTABLISHED LDL/HDL 4.7 01/08/2024 12:28 PM CDT [facility] Comment:REFERENCE RANGE NOT ESTABLISHED NON HDL CHOLESTEROL 218 MG/DL 01/08/2024 12:28 PM CDT [facility] Comment:REFERENCE RANGE NOT ESTABLISHED 01/08/2024 10:4 7 AM CDT Gabriella Guzmán MD LABORATORY Final Resul t [facility] [address] [place] [address], [phone] from Last 3 Months or Most Recently Relevant to Health Maintenance Advance Directives * Full Code (Latest Code Status on File) Date Activated Date Inactivated Comments 03/07/2022 11:49 AM 03/07/2022 4:50 PM * Full Code Date Activated Date Inactivated Comments 12/02/2020 4:37 AM 12/03/2020 4:25 PM Care Teams Strategic Planning Manager Relationship Specialty Start Date End Date Casper Son PA-C PCP - General PHYSICIAN FINISHING RANGE OPERATOR 04/11/19 Julieth Preciado MD [address] [place] [address] Consulting Physician CARDIOVASCULAR DISEASE 02/25/24
--- OUTSIDE RECORDS SUMMARY | 2025-05-14 11:39 | XMS_ITS | Encounter Summary ---
Author Organization [facility] Address [address] [place] [address] Care Team Providers Care Perfect Bind Machine Operator Name Role Phone Casper Son PA-C Primary Care Provider [phone] Gabriella Guzmán MD Unavailable Unavailabl e Julieth Preciado MD Unavailable Reason for Visit * Reason Onset Date Comments Hospital Follow Up 12/07/2020 Encounter Details Date Type Department Care Team (Late st Contact Info) Description 12/07/2020 Hospital Follow-up Call [facility] [address] [place] [address] Carol Ann Mata, RN Hospital Follow Up [...] often do you attend chur ch or uatsdin services? Never 12/02/2020 Do you belong to any clubs o r organizations such as congregation groups, unions, fraternal or athletic groups, or [...] and heating? Not hard at all 12/02/2020 [facility] of Occupat ional Health - Occupational Stress [...] on filedocumented in this encounter Care Teams Perfect Bind Machine Operator Relationship Specialty Start Date End Date Casper Son PA-C PCP - General PHYSICIAN GAS MAKER 04/11/19 Gabriella Guzmán MD Consulting Physician CARDIOVASCULAR DISEASE 12/07/20 Julieth Preciado MD [address] [place] [address] Consulting Physician CARDIOVASCULAR DISEASE 02/25/24 documented as of this encounter
[2025-05-14 13:25] LABS: Troponin I < 0.012 ng/mL (0.000-0.034)
== END 2025-05-14 13:55 | disposition home or self-care (01) ==
PROVIDERS: Emergency Provider Emergency Medicine
DX: R06.00 Dyspnea, unspecified (principal); I25.10 Atherosclerotic heart disease of native coronary artery without angina pectoris; Z20.822 Contact with and (suspected) exposure to COVID-19
CPT/HCPCS: 36415; 71046; 71275; 80053; 83690; 83880; 84484; 85025; 85380; 85610; 85730; 87637; 93005; 99284; Q9967

== ENCOUNTER 2025-08-11 14:32 | Emergency (ER) | payer SELFPAY ==
[2025-08-11 14:34] VITALS: BP 175/109; PULSE 93; RESP 18; O2SAT 97
--- NOTE | 2025-08-11 14:37 | ED.EYEPROB ---
HPI - Eye Problem General Chief complaint: Eye Problems Stated complaint: L. eye redness/itching Time Seen by Provider: 08/11/25 14:32 Source: patient Mode of arrival: ambulatory Limitations: no limitations History of Present Illness HPI Narrative: Patient presents 54-year-old with some eye irritation and redness with itching no foreign body sensation no injury to the left eye no drainage currently no fever chills no shortness breath no nausea vomiting. Patient has a history of hypertension has been out of his medication. chief complaint: eye redness Onset (ago): day(s) Onset description: gradual Duration: constant Location: left eye Severity: mild Related Data Allergies Allergy/AdvReac Type Severity Reaction Status Date / Time No Known Allergies Allergy Verified 08/11/25 14:33 Review of Systems Review of Systems: All systems reviewed & are unremarkable except as noted in HPI and below PMFSH Past Medical History Medical History Hypertension Exam Const: General: healthy appearing and no acute distress Nutritional Appearance: well nourished Orientation/consciousness: patient oriented x3 HENMT: Head: normal to inspection Eyes: Conjunctivae: conjunctival abnormality Neck: Neck: normal visual inspection Chest: Chest palpation & inspection: normal inspection of the chest Resp: Effort & Inspection: normal respiratory effort Auscultation: clear to auscultation bilaterally Cardio: Rate: regular rate Rhythm: regular rhythm GI: Auscultation: normal bowel sounds Course Course Emergency Course: Medical decision making narrative: The patient was evaluated by myself in the emergency department. History obtained from the patient who is an independent historian physical exam performed and witnessed by the nurse. Patient with some left conjunctival injection redness administered a dose of antibiotic eyedrop. Patient has history of hypertension and has been out of his medication and will prescribe lisinopril and sent to his pharmacy. Repeat assessment: Patient doing well on repeat exam with no acute distress Symptoms have been stable since arrival to the emergency department Repeat vitals are stable Patient agrees with discussion after shared medical decision-making and agrees with discharge All questions answered to the patient's satisfaction Advised patient to follow-up with primary in the next 3 to 5 days. MDM Differential Diagnosis Differential Diagnosis: Conjunctivitis/hypertension Critical Care Time Critical Care Time Critical Care Time: No Discharge Plan Discharge Clinical Impression: Bacterial conjunctivitis Patient Disposition: Home Condition: Stable Instructions: Antibiotic Form, Chronic Hypertension (ED), Conjunctivitis (ED) Additional Instructions: Advised patient to take medication as prescribed and to follow with primary care physician within the next 3 to 5 days further evaluation and treatment. Patient Language: Occitan Prescriptions: New neomycin-polymyxin B-dexameth [Maxitrol] 3.5mg/mL-10,000 unit/mL-0.1 % drops,suspension 1 drp LEFT EYE Q4H 7 Days Qty: 5 0RF lisinopril 20 mg tablet 20 mg PO DAILY Qty: 30 0RF Follow-up/Referrals: UNKNOWN,DOCTOR [Primary Care Provider] Time of Disposition: 14:42
[2025-08-11 14:40] VITALS: TEMP 37.1
[2025-08-11] MEDS: NEOMYCIN/POLYMYXIN/DEXAMETH OP OINT 3.5 GM TUBE 1 APPLIC EACH EYE (15:02)
--- OUTSIDE RECORDS SUMMARY | 2025-08-11 16:22 | XMS_ITS | Encounter Summary ---
Author Organization [facility] Address [address] [place] [address] Care Team Providers Care Geriatric Social Worker Name Role Phone Casper Son PA-C Primary Care Provider [phone] Gabriella Guzmán MD Unavailable Unavailabl e Julieth Preciado MD Unavailable Encounter Details Date Type Department Care Team ([facility] st Contact Info) Description 01/02/2023 [facility] [address] [place] [phone] Gabriella Guzmán MD Social History Tobacco Use [...] or ex-partner? No 12/02/2020 Social Connection and Isolation Panel Answer Date Recorded In a typical week, [...] any clubs o r organizations such as yarsanism groups, unions, fraternal or athletic groups, or [...] and heating? Not hard at all 12/02/2020 [facility] - Occupational Stress Questionnaire Answer Date Recorded [...] on filedocumented in this encounter Care Teams Geriatric Social Worker Relationship Specialty Start Date End Date Casper Son PA-C PCP - General PHYSICIAN CLOTH SHADER 04/11/19 Gabriella Guzmán MD Consulting Physician CARDIOVASCULAR DISEASE 12/07/20 Julieth Preciado MD [address] [place] [address] Consulting Physician CARDIOVASCULAR DISEASE 02/25/24 documented as of this encounter
--- OUTSIDE RECORDS SUMMARY | 2025-08-11 16:22 | XMS_ITS | Clinical Summary ---
Author Organization [facility] Address [address] [place] [address] Care Team Providers Care Yard Associate Name Role Phone Casper Son PA-C Primary Care Provider [phone] Julieth Preciado MD Unavailable Allergies Active Allergy [...] artery 03/31/2022 Coronary artery disease invo lving eek coronary artery of eek heart without angina pectoris 03/31/2022 Polycythemia 01/04/2021 Essential hypertension 01/04/2021 Right bundle branch block 01/04/2021 Orchalgia 05/09/2019 Spermatocele 05/09/2019 Resolved Problems Problem Noted Date Diagnosed Date Resolved Date Chest pain 12/02/2020 04/04/2022 Epididymitis 05/09/2019 04/04/2022 Family History Medical History Relation Comments Heart [...] often do you attend chur ch or orthodox services? Never 12/02/2020 Do you belong to any clubs o r organizations such as religion groups, unions, fraternal or athletic groups, or [...] and heating? Not hard at all 12/02/2020 [facility] - Occupational Stress Questionnaire Answer Date [...] of 2) 10/23/2021 ASCVD LDL 01/07/2025 01/08/2024, 0702/2023, 12/29/2022, Additional history exists COVID-19 Vaccine ( season) 2025 06/02/2021, 05/06/2021 Influenza Adult (#1) 2025 DTaP, Tdap and Td Vaccines (2 - Td or Tdap) 01/10/2031 01/10/2021 Hepatitis A Vaccines Aged Out No long er eligible based on patient's age to complete this topic Meningococcal B Vaccine Aged Out No l onger eligible based on patient's age to complete this topic Meningococcal Vaccine Aged Out No huong sameer eligible based on patient's age to complete this topic RSV Immunizations Under 20 Months Aged Out No longer eligible based on patient's age to complete this topic Medical Devices Implanted Type Area Christmas Tree Grower Device Identifier Shelf Expiration Date Model / Serial / Lot Cv [employer] [place] [employer] Prox Lad Stent- 2 Implanted:Qty: 1 on 03/07/2022 by Augusto Dickson MD Stent Coronary LAD [employer] 09/22/2023 [id number] / / [id number] Procedures Procedure Name Priority Date/Time Associated Diagnosis Comments LIPID PANEL Routine 01/08/2024 10:47 AM CDT Chest pain, unspecified type from Last 3 Months or Most Recently Relevant to Health Maintenance Results * (ABNORMAL) LIPID PANEL (01/08/2024 10:47 AM CDT) [facility] CHOLESTEROL 252 MG/DL 01/08/2024 12:28 PM CDT [facility] Comment:HIGH: > OR = 240 TRIGLYCERIDES 290 MG/DL 01/08/2024 12:28 PM CDT [facility] Comment:200-499 HIGH HDL 34(L) >39 MG/DL 01/08/2024 12:28 PM CDT [facility] LDL (CALCULATED) 160 MG/DL 01/08/20 24 12:28 PM CDT [facility] Comment:160-189 HIGH VLDL CALCULATION 58 MG/DL 01/08/20 24 12:28 PM CDT [facility] Comment:REFERENCE RANGE NOT ESTABLISHED CHOL/HDL RATIO 7.4 01/08/2024 12:28 PM CDT [facility] Comment:REFERENCE RANGE NOT ESTABLISHED LDL/HDL 4.7 01/08/2024 12:28 PM CDT [facility] Comment:REFERENCE RANGE NOT ESTABLISHED NON HDL CHOLESTEROL 218 MG/DL 01/08/2024 12:28 PM CDT [facility] Comment:REFERENCE RANGE NOT ESTABLISHED 01/08/2024 10:4 7 AM CDT us Gabriella Guzmán MD LABORATORY Final Resul t [facility] [address] [place] [address], [id number] from Last 3 Months or Most Recently Relevant to Health Maintenance Insurance MEDICAID Advance Directives * Full Code (Latest Code Status on File) Date Activated Date Inactivated Comments 03/07/2022 11:49 AM 03/07/2022 4:50 PM * Full Code Date Activated Date Inactivated Comments 12/02/2020 4:37 AM 12/03/2020 4:25 PM Care Teams Yard Associate Relationship Specialty Start Date End Date Casper Son PA-C PCP - General PHYSICIAN BOTTLE DEALER 04/11/19 Julieth Preciado MD [address] [place] [address] Consulting Physician CARDIOVASCULAR DISEASE 02/25/24
--- OUTSIDE RECORDS SUMMARY | 2025-08-11 16:22 | XMS_ITS | Encounter Summary ---
Author Organization [facility] Address [address] [place] [address] Care Team Providers Care Pulling Machine Operator Name Role Phone Casper Son PA-C Primary Care Provider [phone] Gabriella Guzmán MD Unavailable Unavailabl e Julieth Preciado MD Unavailable Reason for Visit * Reason Onset Date Comments Hospital Follow Up 12/07/2020 Encounter Details Date Type Department Care Team (Late st Contact Info) Description 12/07/2020 Hospital Follow-up Call [facility] Cardiovascular Care Unit [address] [place] [address] Carol Ann Mata, RN Hospital Follow Up [...] and heating? Not hard at all 12/02/2020 [facility] - Occupational [...] on filedocumented in this encounter Care Teams Pulling Machine Operator Relationship Specialty Start Date End Date Casper Son PA-C PCP - General PHYSICIAN MAP MAKER 04/11/19 Gabriella Guzmán MD Consulting Physician CARDIOVASCULAR DISEASE 12/07/20 Julieth Preciado MD [address] [place] [address] Consulting Physician CARDIOVASCULAR DISEASE 02/25/24 documented as of this encounter
--- OUTSIDE RECORDS SUMMARY | 2025-08-11 16:22 | XMS_ITS | Clinical Summary ---
Author Organization [facility] Address [address] [place] [address] Phone Care Team Providers Care Varnish Cooker Name Role Phone Casper Son Primary Care Provider [phone] Too Caceres MD Unavailable Allergies Active Allergy [...] Response Take 40 mg by mouth daily. 2 Active famotidine (PEPCID) 20 MG Tablet [...] Comments Blood Pressure 120/82 10/12/2023 11:11 AM GROUP EXERCISE CLASS INSTRUCTOR Pulse 71 10/12/2023 11:11 AM GROUP EXERCISE CLASS INSTRUCTOR Temperature 36.7 C (98.1 F) 10/12/2023 11:11 AM GROUP EXERCISE CLASS INSTRUCTOR Respiratory Rate 16 10/12/2023 11:11 AM GROUP EXERCISE CLASS INSTRUCTOR Oxygen Saturation 97% 10/12/2023 11:11 AM GROUP EXERCISE CLASS INSTRUCTOR Inhaled Oxygen Concentration - - Weight 91 kg (200 lb 11.2 oz) 10/12/2023 11:11 A M GROUP EXERCISE CLASS INSTRUCTOR Height 182.9 cm (6') 10/12/2023 11:11 AM GROUP EXERCISE CLASS INSTRUCTOR Body Mass Index 27.22 10/12/2023 11:11 AM GROUP EXERCISE CLASS INSTRUCTOR Plan of Treatment Health Maintenance Due Date [...] Immunization Discontinued 01/10/2021 Human Papillomavirus (HPV) Immunization (No Doses Required) Completed Meningococcal Immunization (ACWY) Aged Out No longer eligible based on patient's age to complete this topic Rotavirus Immunization Aged Out No lo nger eligible based on patient's age to complete this topic Care Teams Varnish Cooker Relationship Specialty Start Date End Date Casper Son PA [address] [place] [address] PCP - General Physician Cylinder Checker 12/14/20 Too Caceres MD [address] [place] [address] [place] [address] Consulting Physician Oncology 05/24/23
--- OUTSIDE RECORDS SUMMARY | 2025-08-11 16:22 | XMS_ITS | Patient Health Record ---
Author Organization [facility] Address [address] [address] Care Team Providers Care Filter Washer And Presser Name Role Phone piper aranda Primary Care Provider Katey Cavazosmanuel Bubba Unavailable [phone] Reason For Referral No Information Medications Medication SIG (Take, Route, Frequency, Duration) Notes Start Date End Date Status FLUoxetine HCl 20 MG Capsule 1 cap(s) orally once a day Active Aspirin Adult Low Dose 81 MG Tablet Delayed Release 1 tab(s) orally once a day Active Lisinopril 10 MG Tablet 1 tab(s) orally once a day Active Fenofibrate 160 MG Tablet 1 tab(s) orall y once a day Active Problems Problem Type SNOMED Code ICD Code Onset Dates Problem Status W/U Status Risk Notes Problem Thyroid function tests abnormal (852927852) Abnormal thyroid blood test (R94.6) Active confirmed Plan Of Treatment No Information Medical (General) History Medical History History ICD Code HTN HYperlipidemia Polycythemia Overactive Nerves Surgical History Surgery Date(Month/Year) Vasectomy Hospitalization History Reason Date(Month/Year)
== END 2025-08-11 15:15 | disposition home or self-care (01) ==
LOC: CHSED 14:58
PROVIDERS: Emergency Provider Emergency Medicine
DX: H10.89 Other conjunctivitis (principal); I10 Essential (primary) hypertension
CPT/HCPCS: 99283; A9270